=== PATIENT | female | born 1995 | race Caucasian/White ===

== ENCOUNTER 2017-11-02 09:21 | Day surgery (SDC) | payer BC ==
[2017-11-02] MEDS ORDERED: D5 LR 1000 ML 1,000 ML IV ONE (09:41)
[2017-11-02] MEDS ORDERED: DIPRIVAN VIAL 20 ML ONE (11:33)
[2017-11-02 12:25] VITALS: BP 104/63
== END 2017-11-02 12:15 | disposition home or self-care (01) ==
LOC: SURG1 09:21
PROVIDERS: ATTEND Internal Medicine Gastroenterology
PROC: 0DJD8ZZ Inspection of Lower Intestinal Tract, Via Natural or Artificial Opening Endoscopic (ICD-10-PCS; principal; 2017-11-02 17:15)
DX: K92.1 Melena (principal); R19.4 Change in bowel habit; K64.0 First degree hemorrhoids
CPT/HCPCS: A4217; J3490; J7120